=== PATIENT | female | born 1985 | race Caucasian/White ===

== ENCOUNTER 2018-09-09 18:26 | Outpatient (REF) | payer MEDICAID, SELFPAY ==
[2018-09-11 14:04] LABS: Chlamydia Result Negative; GC Result Negative; Specimen Description URINE
== END 2018-09-09 18:46 ==
LOC: NCHCN 18:26
PROVIDERS: PCP Family Medicine; Visit Provider Nurse Practitioner Family
DX: Z11.3 Encounter for screening for infections with a predominantly sexual mode of transmission
CPT/HCPCS: 87491; 87591

== ENCOUNTER 2024-11-12 13:23 | Outpatient (REF) | payer MEDICAID, SELFPAY ==
--- OUTSIDE RECORDS SUMMARY | 2024-11-12 13:27 | XMS_ITS | Encounter Summary ---
Author Organization [facility] Address [facility] [place] [address] Care Team Providers Care Shank Breaker Name Role Phone Cheyanne Jenkins RAILROAD CAR PAINTER Primary Care Provider Reason for Visit * Consultation (Routine) - Specialty Diagnoses / Procedures Referred By Silvestre t Referred To Contact Hematology and Oncology Diagnoses possible V Stas d/o Cheyanne Jenkins, RAILROAD CAR PAINTER [address] [place] [address] [facility] [address] [place] [address] Referral ID Status Reason Start Date Expiration Date V isits Requested Visits Authorized [id number] Consult, [facility] PCP Updated and/or Approved 11/24/2020 01/05/2021 1 1 Encounter Details Date Type Department Care Team (Latest Contact Info) Description 02/28/2021 9:30 AM EDT TH Visit (TeleHealth) [place] [address] Keisha Ross MD [facility] [place] [address] Heterozygous factor V Leiden mutation; Family history of pulmonary embolism; Palpitations Social History Tobacco Use Types Packs/Day Years Used Date Smoking Tobacco: Never Assessed Sex and Gender Information Value Date Recorded Sex Assigned at Not on file Gender Identity Not on file Sexual Orientation Not on file documented as of this encounter Progress Notes * Keisha Ross MD - 02/28/2021 9:30 AM EDT Images from the original note were not included. [facility] [place] [address] THROMBOSIS CONSULTATION DATE OF VISIT 02/28/2021 Patient Sarah De La Fuente 1985 REFERRING PHYSICIAN Cheyanne Jenkins APRN PRIMARY CARE PHYSICIAN Cheyanne Jenkins APRN REASON FOR CONSULTATION Evaluation of heterozygous factor V Leiden mutation & discuss risk for developing DVT/PE Due to COVID-19 pandemic this office visit was converted to tele visit. Patient verbally consents to this tele visit and understands that the visit may be billed, similar to a clinic office visit. HISTORY OF THE PRESENT ILLNESS Sarah De La Fuente is a 35 y.o. woman with family history of pulmonary embolism, who is seen in consultation at the request of Cheyanne Jenkins APRN For evaluation of heterozygous factor V Leiden mutation and discuss risk for developing venous thromboembolism .The history is obtained from the patient, and I have reviewed extensive medical records provided by the referring physician and located in the electronic medical record to fill in gaps in the patient's recollection of events, treatments and outcomes. She was diagnosed with heterozygous factor V Leiden mutation in context of family history. She was tested for factor V Leiden mutation when she was in high school. She attempted to request her medical record from her previous provider at [facility], but was unsuccessful. When she was with her first child, she was told that her health insurance would not cover the testing, thereforerepeat testing was not performed. Her maternal grandmother was the first one who had pulmonary embolism & also superficial phlebitis. She was tested positive for factor V Leiden mutation. Her maternal uncle had a DVT in his 60s and also tested positive for factor V Leiden mutation. Her mother has never had DVT or PE, but does have factor V Leiden mutation. There is no family history of DVT or PE on paternal side. She has had one successful and normal vaginal delivery. Her was uncomplicated and she did not use any prophylactic anticoagulant . She has been . She is planning to have a second child in the near future. Since September 2020 she has experienced heart pounding, fluttering that has been more frequent. Previously she has had some similar episodes during but not as often. She has noticed that those symptom tends to occur prior to her menses. Her holter monitoring (48 hours) was normal per her report and did not show any significant arrhythmia. She was also seen by a automatic spooler operator. Her primarycare physician has ruled out anemia and hypothyrodism. She is concerned whether her symptoms can berelated to the presence of factor V Leiden mutation. She denies any shortness of breath. THROMBOSIS RISK FACTORS Risk Factor Comment Obesity (BMI >30 kg/m2) V/A Diabetes V/A Current smoker V/A Estrogen or estrogen/progestin V/A V/A Inflammatory disease V/A Recent surgery (<3 months) V Recent hospitalization (<3 mo) V Recent travel (<3 mo) V Period of immobility V Documented thrombophilia V x Heterozygous factor V Leiden mutation per patent's report Accident/Trauma V/A Cancer or treatment for cancer V/A Blood transfusion V/A Central venous catheter V Family history (1st degree) V/A x Mother with factor V Leiden - no VTE Maternal grandmother with PE/phlebitis Maternal uncle with DVT + factor V Leiden mutation Varicose veins/venous insuff. V Hypertension A Hyperlipidemia A Vascular disease A V: Risk factor for venous thrombosis; A: Risk factor for arterial thrombosis PAST MEDICAL HISTORY Asthma Heterozygous factor V Leiden mutation without DVT or PE OPERATIVE PROCEDURES None OBSTETRIC HISTORY MEDICATIONS Current Outpatient Medications on File Prior to Visit Medication Sig Dispense Refill ??? fluticasone propion-salmeteroL (ADVAIR HFA) 230-21 mcg/actuation HFA Aerosol Inhaler Inhale 1 puff into the lungs 2 times daily. ??? loratadine (Claritin) 10 mg Tablet Take 10 mg by mouth daily. No current facility-administered medications on file prior to visit. ADVERSE DRUG REACTIONS Allergies as of 02/28/2021 - Review Complete 02/28/2021 Allergen Reaction Noted ??? Pcn [penicillins] 02/28/2021 FAMILY HISTORY Mother with factor V Leiden mutation - no DVT/PE Maternal grandmother with PE and varicosity, and phlebitis. She in her 90s. Maternal uncle with DVT and factor V Leiden mutation Maternal grandfather in his 40s due to MD Father with HTN. 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 REVIEW OF SYSTEMS Fevers/chills/sweats No Recent infections No Unexplained weight loss No Headache/lightheadedness/syncope No Sinus pain/pressure No Oral sores/lesions/bleeding No Sore throat/dysphagia No Nosebleeds No Cough/SOB/chest pain/heart racing Heart racing intermittent Nausea/vomiting/dyspepsia No Abdominal pain No Diarrhea/constipation No Urinary pain, burning, incontinence No Hematuria No Vaginal discharge/bleeding No Skin rashes/ulcers No Back/joint pain/swelling No Leg swelling/pain/redness No Bruising/petechiae/bleeding/melena No Sensory/motor No Polydipsia/polyuria/heat/cold intol No Lumps/bumps/swollen glands No Other Negative except as above PHYSICAL EXAMINATION None LABORATORY STUDIES None RADIOGRAPHIC STUDIES None IMPRESSION Sarah De La Fuente is a 35 y.o. woman with family history of VTE and factor V Leiden mutation who was referred to our THrombosis clinic for evaluation of factor V Leiden mutation and discuss risk for developing DVT and PE. Sarah wonders if she should try to repeat her lab testing to confirm the status of factor V Leiden mutation. Her mother is quiet certain about the status of her factor V Leiden mutation. I told her that the insurance tends not to cover the cost of factor V Leiden mutation and she may need to pay out of pocket if she would like to repeat the testing. I personally don't think that she needs to be repeated the testing. She has no other clinical risk factors for VTE except heterozygous factor I told her that factor V Leiden is common affecting 5% or more of the population (about 50 million people worldwide). Heterozygous factor V Leiden has a 5-fold increased risk for developing a first episode of VTE over the general population (i.e., from 1 in 1000 per year to 1 in 200 per year in middle age). I toldher that some patients with factor V Leiden would not develop VTE in their lifetime if they don't have other additive risk factors such as , obesity, hormone use, immobility, long distance travel, diabetes, cancer, surgery, trauma and even blood type (type non-O > O). I reviewed the fact that while factor V Leiden is associated with an increased risk for venous thromboembolism, it does not appear to contribute to increased risk for arterial thrombosis under most circumstances. Moreover, the available data suggest that people with factor V Leiden alone may not necessarily be at anyincreased risk for developing a recurrent event than people without thrombophilia. We then discussed the genetic transmission of factor V Leiden and the role of family testing. Her child will have 50% chance to inherit factor V Leiden mutation from her assuming her does notcarry the gene. I told her that it is more important to senior genetic counselor the family member regarding their risk factor for VTE and try to modify those risk factors than focus on the genetic information that cannot be changed. We discussed that there is no role for aspirin or anticoagulant to take on daily basis for primary prophylaxis. However, pharmacologic thromboprophylaxis should be considered during high risk period such as surgery, hospitalization, immobility, trauma. She may also want to discuss with her OB regarding risk/benefit of prophylactic anticoagulant after delivery if she wishes to have another child. I reviewed other preventative strategies for VTE including maintain good weight/activity, wearing compression & getting up every 2 hours for 5-10 mins walk during long car ride/long haul flight. We talked about safe choice of contraceptive method. Mirena IUD or copper IUD are safe without increased risk for thrombosis. However, copper IUD sometimes can increase vaginal bleeding, therefore Mirena IUD may be a better choice. Progesterone only pill is also considered safe without thrombosis risk but failure rate of may be higher.We discussed that estrogen containing OCP is generally not absolute contraindicated in patient with factor V Leiden mutation without clinical thrombosis. However, we try to choose contraceptive method that is associated with lowest risk before considering estrogen containing OCP. Although having factor V Leiden increases the risk for OCP-associated VTE that the absolute risk was still quite low for women of reproductive age (1/300/year or approximately 3% over 10 years of OCPuse compared to 10/2499/year or ~0.4% over 10 years of use for a woman without thrombophilia who useOCP and the overwhelming majority of women with factor V Leiden who use oral contraceptives do not develop thromboses. Thus, I do not believe that hormone-based contraceptives are absolutely contraindicated for her should she wish or need to use them. Finally we discussed that I do not think that her palpitation is caused by pulmonary embolism, morelikely due to sinus tachycardia. I don't have her medical record of her work up to review at the time of consultation. She has already being evaluated by automatic spooler operator. Should her symptom get worse, she should discuss with her primary care physician. We also reviewed sign and symptom of DVT and PE. PLAN/RECOMMENDATIONS 1. Will mail reading material about factor V Leiden mutation along with this note to her address 2. No indication for aspirin or anticoagulant on daily basis, but consider prophylactic anticoagulant during high risk period 3. Seek medical attention if sign or symptom of DVT or PE 4. Follow-up with PCP if palpitation gets worse 5. Safe choice of contraception: Mirena IUD, progesterone only pill Sarah De La Fuente had the opportunity to ask questions and indicated that all her questions were answered to her satisfaction. While I won't schedule a routine follow-up, she knows that she can call ouroffice to schedule follow-up as needed. I provided care to the patient via tele visit Total time of care including chart review, call, documentation: 45 minutes. Keisha Ross MD documented in this encounter Plan of Treatment Not on file documented as of this encounter Visit Diagnoses Diagnosis Heterozygous factor V Leiden mutation Primary hypercoagulable state Family history of pulmonary embolism Family history of other cardiovascular diseases Palpitations documented in this encounter Care Teams Shank Breaker Relationship Specialty Start Date End Date Cheyanne Jenkins APRN PCP - General Family Medicine 12/02/20 documented as of this encounter
--- OUTSIDE RECORDS SUMMARY | 2024-11-12 13:27 | XMS_ITS | Encounter Summary ---
Author Organization [facility] Address [facility] [place] [address] Care Team Providers Care Sql Ssrs Developer Name Role Phone Karis Lane APRN Primary Care Provider Reason for Visit * Reason Onset Date Comments Asthma 05/22/2012 Encounter Details Date Type Department Care Team ([facility] st Contact Info) Description 05/22/2012 [place] [address] Cong Ellsworth Jr., MD [facility] [place] [address] Asthma Social History Tobacco Use Types Packs/Day Years Used Date Smoking Tobacco: Never Assessed Sex and Gender Information Value Date Recorded Sex Assigned at Not on file Gender Identity Not on file Sexual Orientation Not on file documented as of this encounter Miscellaneous Notes * Telephone Encounter - Barbi Floyd - 05/22/2012 9:01 AM EDT Please sign pending PFT orders documented in this encounter Plan of Treatment Not on file documented as of this encounter Visit Diagnoses Diagnosis Asthma- Primary Unspecified asthma documented in this encounter Care Teams Sql Ssrs Developer Relationship Specialty Start Date End Date Karis Lane APRN [address] [place] [address] PCP - General 02/14/12 12/01/20 documented as of this encounter
--- OUTSIDE RECORDS SUMMARY | 2024-11-12 13:27 | XMS_ITS | Continuity of Care Document ---
Author Organization [facility] Address [address] [place] [address] Care Team Providers Care Athletic Team Physician Name Role Phone ALEJANDRA GODINEZ Primary Care Physic terrance Encounter [facility] FIN NBR [id number] Date(s): 06/23/24 - 06/23/24 [facility] [address] [place] [address]- Discharge Disposition: Home or Self Care Attending Physician: ALEJANDRA GODINEZ Admitting Physician: ALEJANDRA GODINEZ Referring Physician: ALEJANDRA GODINEZ Allergies, Adverse Reactions, Alerts Substance Criticality Severity Reaction Reaction Severity Status penicillins Unable to assess criticality Unknown Active Seasonal Unable to assess criticality Unknown Active Medications Advair Diskus 250 mcg-50 mcg inhalation powder 1 puffs, Inhale, BID, # 180 EA, 0 Refill(s) Start Date: 02/04/23 Status: Ordered Claritin 10 mg oral tablet 10 mg = 1 tab, Oral, Daily, # 90 tab, 0 Refill(s) Start Date: 02/04/23 Status: Ordered Mirena 52 mg intrauteral device 0 Refill(s) Start Date: 05/31/22 Status: Ordered ProAir HFA 90 mcg/inh inhalation aerosol 2 puffs, Inhale, every 6 hr, PRN as needed for wheezing, # 8.5 g, 0 Refill(s) Start Date: 02/04/23 Status: Ordered Problem List Condition Confirmation Course Effective Dates Status Health St atus Informant Allergic rhinitis Confirmed Active Asthma Confirmed Active Eczema Confirmed Active Factor V Leiden 1 Confirmed Active Lyme disease Confirmed Active 1mother is positive, had children tested. pt has no history of clot, prob heterozygote based upon mother's recollection-records not available Results Radiology Reports * Exam Date Time Procedure Performing Provider Status 06/23/24 9:02 AM MG Mammo Diagnostic Left Serina Singh; Auth (Verified) Notes: (MG Mammo Diagnostic Left) Reason For Exam: ABNORMAL MAMMO MG Mammo Diagnostic Left EXAM DESCRIPTION: MG Mammo Diagnostic Left 06/23/2024 INDICATION: ABNORMAL MAMMO RISK FACTOR: The patient may be at increased breast cancer risk based on 1 or more risk factors COMPARISON: Screening mammogram from 04/23/2024 BREAST DENSITY: There are scattered areas of fibroglandular density. FINDINGS: Spot compression left MLO view and true lateral view of the left breast were performed with digital breast tomosynthesis. Images were reviewed using computer aided detection. Mole markers were placed on the left breast. Previously described small nodular asymmetry is consistent with skin mole or skin tag artifact based on problem solving views. No mammographic evidence of malignancy in the left breast. Results were discussed with the patient at the time of examination. ASSESSMENT: No mammographic evidence of malignancy. Negative. BI-RADS category 1. RECOMMENDATION: 1: Screening mammography in 1 year JOB #: [id number] Final Signed by: Johny Gupta MD Signed (Electronic Signature): 06/23/2024 9:07 am Social History Social History Type Response Tobacco Never tobacco user T obacco Use:. Sex Female Sex Representation Female (finding) Patient Care team information Care Team Personnel Name: ALEJANDRA GODINEZ Position: No Access Member Role: Primary Care Physician Address: [facility] [address] [place] [address]- Care Team Related Persons Name: TONNY VIZCAINO Name: TONNY VIZCAINO Insurance Providers Guarantor name: ANGELY Mere ETIENNE Health Plan Information #: 1 Payer: [place] Member Number: [id number] Policy Number: NA Health Plan Information #: 2 Payer: [place] Member Number: [id number] Policy Number: NA
--- OUTSIDE RECORDS SUMMARY | 2024-11-12 13:27 | XMS_ITS | Continuity of Care Document ---
Author Organization [facility] Address [address] [place] [address] Care Team Providers Care Choke Reamer Name Role Phone ALEJANDRA GARRIDO Primary Care Physician Encounter [facility]BR [id number] Date(s): 02/04/23 - 02/04/23 [facility] [address] [place], [place] [address] Encounter Diagnosis IUD check up(Discharge Diagnosis) - 02/04/23 Encounter for test(Discharge Diagnosis) - 02/04/23 Discharge Disposition: Home or Self Care Attending Physician: Laura Becerra APRN Allergies, Adverse Reactions, Alerts Substance Reaction Severity Status penicillins Unknown Active Seasonal Unknown Active Functional Status 02/04/23 Other exposure to Infectious Disease Non e Medications Advair Diskus 250 mcg-50 mcg inhalation [...] based upon mother's recollection-records not available Results Laboratory List Name Date Urine Qual POCT 02/04/23 Most recent to oldest [Reference Range]: 1 U Preg POCT [Negative] Negative (02/04/23 12:16 PM) Vital Signs Most recent to oldest [Reference Range]: 1 Blood Pressure [90-140/60-90 mmHg] 115/7 3mmHg (02/04/23 11:50 AM) Weight 92.4 kg (02/04/23 11:50 AM) Weight Measured (lbs) 203.707 lb (02/04/23 11:50 AM) [place] Body Weight Calculated 56.909 kg (02/04/23 11:50 AM) Height 165 cm (02/04/23 11:50 AM) Height/Length Measured (inches) 64.96 in ch (02/04/23 11:50 AM) BSA Measured 2.06 m2 (02/04/23 11:50 AM) Body Mass Index 33.94 kg/m2 (02/04/23 11:50 AM) Social History Social History Type Response Tobacco Never tobacco user T obacco Use:. Sex Female Physician Outpatient Note * Laura Becerra, CHILDCARE WORKER: PERFORM Event Display: Office Clinic Note Physician Authored Date: [id number] RAZSHERRYJeannette ANGELY F :1985 Age:37 years Sex:Female Visit Date:02/04/2023 Primary Care Physician: ALEJANDRA GARRIDO Chief Complaint IUD check, cant feel the strings anymore. over the last 4-5 days, lots of abdominal pain, nausea ??and slight fever. slight vaginal bleeding. History of Present Illness IUD check, cant feel the strings anymore. over the last 4-5 days, lots of abdominal pain, nausea??and felt feverish. slight vaginal bleeding. IUD placed 06/10/2022 at her 6 week visit. Is still and starting to wean Review of Systems ?GENERAL??Overall she feels better today, she had stomach pain over the weekend. /LATH TIER/Breast??Aside from those issues noted above, the patient doesn't have any other complaints Physical Exam Vitals & Measurements BP:??115/73?? HT:??165??cm?? WT:??92.4??kg?? BMI:??33.94?? BSA:??2.06?? [facility] General Physical Exam:?GENERAL?Healthy woman appearing her age, No apparent distress, Reasonable historian.?? [facility] Pelvic Exam:?EXTERNAL GENITALIA?Labia majora and minora bilaterally are normal in appearance., Introitus is normal in external appearance..?VAGINA?Healthy rugated mucosa..?VAGINAL DISCHARGE?Thin, minimal, white discharge..?CERVIX?Healthy in appearance. IUD strings in good position.?UTERUS?Small and normal in contours., Uterus is nontender.??Adnexal areas bilaterally are normal in size and are nontender..?? Assessment/Plan 1.??IUD check up??Z30.431 IUD strings in good position. May be some hormonal changes now that she has decreased breastfeedingand baby is eating more foods. Will monitor symptoms and call prn. Her 2yo was recently ill with a GI virus. Symptoms could also be related to a viral illness. ?? 2.??Encounter for test??Z32.00 Ordered: Urine Test Clinic POC (RE), 02/04/23 12:15:00 EDT, Encounter for test, 02/05/2312:15:00 EDT ?? Follow Up Instructions prn Problem List/Past Medical History Ongoing Allergic rhinitis Asthma Eczema Factor V Leiden Lyme disease Historical Medications Advair Diskus 250 mcg-50 mcg inhalation powder, 1 puffs, Inhale, BID Claritin 10 mg oral tablet, 10 mg= 1 tab, Oral, Daily Mirena 52 mg intrauteral device ProAir HFA 90 mcg/inh inhalation aerosol, 2 puffs, Inhale, every 6 hr, PRN Allergies Seasonal penicillins Social History Alcohol Current, Beer, 3-5 times per week Electronic Cigarette/Vaping Electronic Cigarette Use: Never. Employment/School Employed, Work/School description: self employed.. Home/Environment Lives with Children, Significant other. Living situation: Home/Independent. Sexual Sexually active: Yes. Substance Use Never Tobacco Never tobacco user Tobacco Use:. Family History Bleeding disorder: Mother, Aunt/Uncle and Grandmother (M). Breast cancer: Aunt/Uncle. Cancer: Mother, Grandmother (M) and Grandmother (P). Heart attack: Grandfather (M). Hypertension: Mother and Father. Other: Mother and Father. Family Member(s): ?? GPARENT, at age: 40 Years. Cause of : heart attack Family Member(s): ?? GPARENT, at age: Unknown. Cause of : Family Member(s): ?? GPARENT, at age: Unknown. Cause of : Bone cancer Family Member(s): ?? GPARENT, at age: 50 Years. Cause of : MVA Lab Results Test Name Test Result Date/Time U Preg POCT Negative 02/04/2023 12:16 EDT Electronically Signed on 02/04/23 02:19 PM Laura Becerra APRN Patient Care team information Care Team Personnel Name: ALEJANDRA GARRIDO Position: No Access Member Role: Primary Care Physician Address: Address: [address] [place] [address] [address] [place], [place] [address] Care Team Related Persons Name: TONNY VIZCAINO Address: Home [address] [place] [phone] [facility]
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
--- OUTSIDE RECORDS SUMMARY | 2024-11-12 13:27 | XMS_ITS | Continuity of Care Document ---
Author Organization [facility] Address [address] [place] [address] Care Team Providers Care Business Dean Name Role Phone ALEJANDRA GODINEZ Primary Care Physic terrance Encounter [facility] NBR [id number] Date(s): 04/23/24 - 04/23/[address] [address] Encounter Diagnosis Encounter for screening mammogram for malignant neoplasm of breast(Final) - Family history of malignant neoplasm of breast(Final) - Discharge Disposition: Home or Self Care Attending Physician: ALEJANDRA GODINEZ Admitting Physician: ALEJANDRA GODINEZ Referring Physician: ALEJANDRA GODINEZ Allergies, Adverse Reactions, Alerts Substance Reaction Severity Status penicillins Unknown Active Seasonal Unknown Active Medications Advair Diskus 250 mcg-50 [...] Exam Date Time Procedure Performing Provider Status 04/23/24 4:28 PM MG Mammo Screening Bilateral DomainUse r, Generated; Auth (Verified) Notes: (MG Mammo Screening Bilateral) Reason For Exam: FAMILY HX OF BREAST CANCER MG Mammo Screening Bilateral EXAM DESCRIPTION: MG Mammo Screening Bilateral 04/23/2024 INDICATION: FAMILY HX OF BREAST CANCER RISK FACTOR: The patient may be at increased breast cancer risk based on 1 or more risk factors COMPARISON: None available BREAST DENSITY: There are scattered areas of fibroglandular density. FINDINGS: MLO and CC views were performed with digital breast tomosynthesis. Images were reviewed using computer aided detection. Small smoothly marginated nodular asymmetry in the upper left breast at superficial depth only well seen on MLO tomosynthesis images. Spot compression left MLO view and true lateral view of the left breast are recommended for further evaluation. If a lesion persists on problem solving views, left breast ultrasound would be warranted Otherwise, no asymmetry, architectural distortion or suspicious grouping of calcifications to suggest malignancy in either breast. ASSESSMENT: Incomplete: Needs additional imaging evaluation and/or prior mammograms for comparison. BI-RADS category 0. RECOMMENDATION: 1: Mammography spot compression left JOB #: [id number] Final Signed by: Johny Gupta MD Signed (Electronic Signature): 04/23/2024 4:37 pm Social History Social History Type Response Tobacco Never tobacco user T obacco Use:. Sex Female Patient Care team information Care Team Personnel Name: ALEJANDRA GODINEZ Position: No Access Member Role: Primary Care Physician Address: Address: [address] [place] [address]- Care Team Related Persons Name: TONNY VIZCAINO Address: Home [address] [place] [phone] [facility] [[email or web address]] Name: TONNY VIZCAINO Address: Home [address] [place] [phone] [facility] [[email or web address]]
--- OUTSIDE RECORDS SUMMARY | 2024-11-12 13:27 | XMS_ITS | Clinical Summary ---
Author Organization [facility] Address [facility] [place] [address] Care Team Providers Care Body Maker Machine Setter Name Role Phone Cheyanne Jenkins APRN Primary Care Provider [phone] Allergies Active Allergy Reactions Criticality Noted Date Comments Penicillins 02/28/2021 Medications Medication Sig Dispensed Refills Start Date End Date Status fluticasone propion-salmeteroL (ADVAIR HFA) 230-21 mcg/actuation HFA Aerosol Inhaler Inhale 1 puff into the lungs 2 times daily. Active loratadine (Claritin) 10 mg Tablet Take 10 mg by mouth daily. Active Active Problems Problem Noted Date Diagnosed Date Heterozygous factor V Leiden mutation 03/03/2021 Social History Tobacco Use Types Packs/Day Years Used Date Smoking Tobacco: Never Assessed Sex and Gender Information Value Date Recorded Sex Assigned at Not on file Gender Identity Not on file Sexual Orientation Not on file Plan of Treatment Health Maintenance Due Date Last Done Comments HIV screen 2003 Hepatitis C Screening 2003 Hepatitis B vaccine (0-59 yrs) (1) 2004 Tetanus/Diphtheria/Pertussis Vaccines (1 - Tdap) 11/22 HPV test 2015 PAP Smear 01/31/2017 02/01/2012 Covid-19 Vaccine (1 - 2023- season) 2024 Influenza (Flu) vaccine (1 o f 1 - Influenza standard series) 06/28/2024 Procedures Procedure Name Priority Date/Time Associated Diagnosis Comments CANDLES POURER CYTOLOGY FINAL REPORT Routine 02/01/2012 7:47 PM EDT from Last 3 Months or Most Recently Relevant to Health Maintenance Results * CANDLES POURER CYTOLOGY FINAL REPORT (02/01/2012 7:47 PM EDT) Frame Feeder Cytology Final Report ? [facility] ? Provider: ?? KARIS LANE ?Pt. Name: ?? JAIMIE ANGELY Severino ? Acc #: ?[id number] ?Pt. ? Col Date: ?? 02/01/2012 ?/Sex: ?1985,(26 years),Female ? Rec Date: ?? 02/04/2012 ?LOC: ?[facility] ? CYTOPATHOLOGY: ??CANDLES POURER ? ---Adequacy--- ? Specimen submitted is satisfactory for evaluation. ??No endocervical ? component present . ? Note: ??Initial cross-sectional studies suggested that DAIANA cells were more ? commonly identified when an endocervical component was present, however ? subsequent longitudinal studies fail to show that women lacking an ? endocervical component in a Pap smear are at increased risk for DAIANA. ? ---Cytopathologic Diagnosis--- ? NORMAL ? Negative for Intraepithelial Lesion or Malignancy (NILM). ? 02/08/12 ?? Screened by: ??LMY ? 02/08/12 ?? Verified by: ??Ajit HUFF(ASCP), Luz Smith - Farm Mortgage Agent ? ---Clinical Information--- ? HPV Option: ? Reflex HPV ? Preparation: ?Liquid Based Pap ? Specimen Source: ?Cervical Endocervical LBP ? LMP: ?01/11/2012 ? Hormones?: ?No ? Hysterectomy?: ?No ?: ?No ?: ?No ? I.U.D.?: ?No ? Pelvic Radiation: ? No ? Prior CANDLES POURER Therapy?: ? No ? Hist Abnl Pap/Biopsy?: ??No ? Hist of HPV Vaccine?: ?? (not provided) ? Hist of Smoking?: ? (not provided) ? Hist of EDMUNDO exposure?: ??(not provided) ? Clinical Data, Significant Therapy and Clinical Impression: ? Referring Identifier: ??[id number] ? This Pap Test has been evaluated with the assistance of the ThinPrep Pap ? Test Imaging System. ? Note: ? [facility] ? Provider: ?? KARIS L[address] ?Pt. Name: ?? ANGELY DE LA FUENTE ? Acc #: ?[id number] ?Pt. ? Col Date: ?? 02/01/2012 ?/Sex: ?1985,(26 years),Female ? Rec Date: ?? 02/04/2012 ?LOC: ?[facility] ? CYTOPATHOLOGY: ??CANDLES POURER ? The Pap test is a screening test for cervical cancer with an inherent ? false-negative rate dependent upon several variables. ??For further ? information please contact the [facility] Laboratory. ? Reference: ??Paige BORGES. ??Robot Programmer of Pap Smear Results. ??In: ? Isabelle BS, Luis Enrique HH, ed. ??The Pap Smear. ??[place]: ??[place]ago, 2002: ? 71-77. [facility] 02/01/2012 7:[address] ELECTRONICS PROCESSING SUPERVISOR PATHOLOGY/CYTOLOGY O RDERABLES [facility] from Last 3 Months or Most Recently Relevant to Health Maintenance Care Teams Body Maker Machine Setter Relationship Specialty Start Date End Date Cheyanne Jenkins APRN PCP - General Family Medicine 12/02/20
--- OUTSIDE RECORDS SUMMARY | 2024-11-12 13:27 | XMS_ITS | Encounter Summary ---
Author Organization [facility] [place] [address] Care Team Providers Care Wrap Yarn Sorter Name Role Phone Unknown Primary Care Provider Unavailabl e Encounter Details Date Type Department Care Team (Latest Contact Info) Description 02/01/2012 6:47 PM EDT - 02/01/2012 11:59 PM EDT Hospital [place] [id number] Santi Keller MD [address] [place] [address] Discharge Disposition: Home Social History Tobacco Use Types Packs/Day Years Used Date Smoking Tobacco: Never Assessed Sex and Gender Information Value Date Recorded Sex Assigned at Not on file Gender Identity Not on file Sexual Orientation Not on file documented as of this encounter Plan of Treatment Not on file documented as of this encounter Procedures Procedure Name Priority Date/Time Associated Diagnosis Comments ASSISTANT TRACK COACH CYTOLOGY FINAL REPORT Routine 02/01/2012 7:47 PM EDT documented in this encounter Results * ASSISTANT TRACK COACH CYTOLOGY FINAL REPORT (02/01/2012 7:47 PM EDT) Asbestos Abatement Technician Cytology Final Report ? [facility] ? Provider: ?? MARYURI GRIFFIN ?Pt. Name: ?? ANGELY DE LA FUENTE ? Acc #: ?[id number] ?Pt. ? Col Date: ?? 02/01/2012 ?/Sex: ?1985,(26 years),Female ? Rec Date: ?? 02/04/2012 ?LOC: ?[facility] ? CYTOPATHOLOGY: ??ASSISTANT TRACK COACH ? ---Adequacy--- ? Specimen submitted is satisfactory [...] Verified by: ??Ajit HUFF(ASCP), Luz Smith - Irrigator ? ---Clinical Information--- ? HPV Option: ? Reflex HPV ? Preparation: ?Liquid Based Pap ? Specimen Source: ?Cervical Endocervical LBP ? LMP: ?01/11/2012 ? Hormones?: ?No ? Hysterectomy?: ?No ?: ?No ?: ?No ? I.U.D.?: ?No ? Pelvic Radiation: ? No ? Prior ASSISTANT TRACK COACH Therapy?: ? No ? Hist Abnl Pap/Biopsy?: ??No ? Hist of HPV Vaccine?: ?? (not provided) ? Hist of Smoking?: ? (not provided) ? Hist of EDMUNDO exposure?: ??(not provided) ? Clinical Data, Significant Therapy and Clinical Impression: ? Referring Identifier: ??[id number] ? This Pap Test has been evaluated with the assistance of the ThinPrep Pap ? Test Imaging System. ? Note: ? [facility] ? Provider: ?? MARYURI GRIFFIN ?Pt. Name: ?? ANGELY DE LA FUENTE ? Acc #: ?[id number] ?Pt. ? Col Date: ?? 02/01/2012 ?/Sex: ?1985,(26 years),Female ? Rec Date: ?? 02/04/2012 ?LOC: ?[facility] ? CYTOPATHOLOGY: ??ASSISTANT TRACK COACH ? The Pap test is a screening test for cervical cancer with an inherent ? false-negative rate dependent upon several variables. ??For further ? information please contact the [facility] Laboratory. ? Reference: ??Paige BORGES. ??Compound Filler of Pap Smear Results. ??In: ? Isabelle BS, Luis Enrique HH, ed. ??The Pap Smear. ??[place]: ??[place], 2002: ? 71-77. [facility] 02/01/2012 7:47 PM EDT Maryuri Griffin FOLDER INSPECTOR PATHOLOGY/CYTOLOGY O RDERABLES Performing Organization Address City/State/[facility] Co de Phone Number [facility] documented in this encounter Visit Diagnoses Not on filedocumented in this encounter Care Teams Wrap Yarn Sorter Relationship Specialty Start Date End Date Unknown None PCP - General 09/19/10 02/13/12 documented as of this encounter
[2024-11-12 15:17] LABS: Abs Immature Grans 0.02 10^3/uL (0.0-0.06); Absolute Basophil Count 0.07 10^3/uL (0.0-0.2); Absolute Eosinophil Count 0.15 10^3/uL (0.0-0.7); Absolute Lymphocyte Count 2.61 10^3/uL (1.2-3.4); Absolute Monocyte Count 0.46 10^3/uL (0.1-0.8); Absolute Neutrophil Count 3.77 10^3/uL (1.2-6.7); Eosinophils % 2.1 %; HCT 43.4 % (36.0-46.0); HGB 14.2 g/dL (11.2-15.7); Immature Grans % 0.3 %; Lymphocytes % 36.9 %; MCHC 32.7 % (32.0-36.0); MCV 92 fL (80-95); MPV 10.3 fL (8.0-11.0); Monocytes % 6.5 %; Neutrophils % 53.2 %; Platelet Count 357 10^3/uL (130-400); RBC 4.74 10^6/uL (3.93-5.22); RDW 12.5 % (11.7-14.6); RDW-SD 42.3 fL; WBC 7.08 10^3/uL (4.4-10.8)
[2024-11-12 16:04] LABS: ALT 18 U/L (14-59); AST 14 U/L (15-37); Albumin 3.6 g/dL (3.4-5.0); Alkaline Phosphatase 59 U/L (46-116); Anion Gap 7.9 mmol/L (3-11); BUN 13 mg/dL (7-18); Bilirubin, Total 0.31 mg/dL (0.2-1.0); CO2 28.1 mmol/L (21.0-32.0); CREATININE 0.8 mg/dL (0.55-1.02); Calcium 9.6 mg/dL (8.5-10.1); Calculated LDL 140 mg/dL (<100); Chloride 104 mmol/L (98-107); Cholesterol 245 mg/dL (<200); Estimated GFR 96.66 (mL/min/1.73m2); Glucose 83 mg/dL (74-106); HDL Cholesterol 77 mg/dL (40-60); Potassium 4.9 mmol/L (3.5-5.1); Sodium 140 mmol/L (136-145); TSH (W/Ref FT4) 1.89 uIU/mL (0.36-3.74); Total Protein 7.9 g/dL (6.4-8.2); Triglyceride 141 mg/dL (<150); Vitamin D 25 Total 24.6 ng/mL (30-100)
== END 2024-11-12 13:24 | disposition home or self-care (01) ==
LOC: NCHCN 13:23
PROVIDERS: PCP Family Medicine; Visit Provider Nurse Practitioner Family
DX: R00.2 Palpitations (principal); Z00.00 Encounter for general adult medical examination without abnormal findings
CPT/HCPCS: 80053; 80061; 82306; 84443; 85025